=== PATIENT | female | born 1985 | race Asian ===

== ENCOUNTER 2020-11-04 10:45 | Emergency (ER) | payer OTHER ==
[~2020-11-04] VITALS: Ht 170.2 cm; Wt 68.0 kg
[2020-11-04 10:53] VITALS: BP 132/84
--- NOTE | 2020-11-04 11:29 | NUR ---
covid swab collected and sent to lab
--- NOTE | 2020-11-04 11:29 | NUR ---
Patient discharged to home in stable condition. Written and verbal after care instructions given. Patient verbalizes understanding of instruction.
== END 2020-11-04 11:30 | disposition home or self-care (01) ==
LOC: ER 10:53
DX: O98.519 Other viral diseases complicating pregnancy, unspecified trimester (principal); U07.1 COVID-19; R50.9 Fever, unspecified; M79.10 Myalgia, unspecified site; Z3A.00 Weeks of gestation of pregnancy not specified
CPT/HCPCS: 99283; C9803; U0003